=== PATIENT | male | born 1970 | race Caucasian/White ===

== ENCOUNTER 2022-09-30 10:34 | Outpatient (OUT) | payer MEDICARE, MEDICAID, SELFPAY ==
--- NOTE | 2022-09-30 10:46 | US_ITS ---
The [address] [address] Patient Name: PRISCILA FRASER MRN: [id number] date: 1970 Sex: M Assigned Patient Location: [facility] Current Patient Location: RAD Accession/Order Number: [id number] Exam Date: 09/30/2022 10:50 Report Date: 09/30/2022 12:42 At the request of: SHAIKH GEOFF Procedure: US renal bladder EXAM: US renal bladder HISTORY: Left Renal Cyst N28.1 COMPARISON: CT abdomen and pelvis 04/08/2022. TECHNIQUE: Real-time ultrasound imaging of the kidneys and bladder. Findings: The right and left kidneys measure 9.1 and 10.2 cm. Corticomedullary differentiation bilaterally. No renal stones or collecting system dilatation. Off the upper pole of the left kidney is a 1.2 x 1.0 x 1.3 cm anechoic lesion with posterior acoustic enhancement likely representing a cyst. There is a thin rim calcification. No perinephric fluid collections. The bladder is partially distended. Mild bladder wall thickening likely relates to lack of full distention. Prevoid volume of 99 mL with a postvoid residual of 81 mL. The bilateral ureteral jets are identified. The prostate measures 3.7 x 3.6 x 2.9 cm. IMPRESSION: 1. Left renal cyst with a thin rim calcification has not growing significantly when compared to the prior CT 04/08/2022. 2. Postvoid residual volume within the bladder. Electronically authenticated by: VALERIA CARTER Date: 09/30/2022 12:42
== END 2022-09-30 10:35 ==
LOC: RAD 10:38
PROVIDERS: PCP Internal Medicine; Visit Provider Internal Medicine
DX: N28.1 Cyst of kidney, acquired (principal)
CPT/HCPCS: 76770

== ENCOUNTER 2024-12-26 14:03 | Emergency (ER) | payer MEDICARE, MEDICAID, SELFPAY ==
--- OUTSIDE RECORDS SUMMARY | 2024-12-13 13:00 | XMS_ITS | Encounter Summary ---
Author Organization [facility] Address [address] [place] [address] Care Team Providers Care Guardian Ad Litem Name Role Phone Rodrigue Hernandez MD Primary Care Provider Janet Lopez CLAIMS INVESTIGATOR Unavailable [phone] Encounter Details Date Type Department Care Team (Late st Contact Info) Description 12/13/2024 1:00 PM EDT Office Visit [facility] [address] [place] [address] Tasha Rodríguez NP [address] [place] [address] Scleroderma (HCC) (Primary Dx) Social History Tobacco Use Types Packs/Day Years Used Date Smoking Tobacco: Never Passive Smoke Exposure: Never Smokeless Tobacco: Never Alcohol Use Standard Drinks/Week Comments Never 0 (1 standard drink = 0.6 oz pur e alcohol) PHQ-2 Answer Date Recorded Patient Health Questionnaire-2 Score 2 09/14/2024 Sex and Gender Information Value Date Recorded Sex Assigned at Not on file Legal Sex Male 11:47 PM EDT Gender Identity Not on file Sexual Orientation Not on file documented as of this encounter Last Filed Vital Signs Vital Sign Reading Time Taken Comments Blood Pressure 118/80 12/13/2024 1:04 PM EDT Pulse 98 12/13/2024 1:04 PM EDT Temperature 36.4 C (97.5 F) 12/13/2024 1:04 PM EDT Respiratory Rate 18 12/13/2024 1:04 PM EDT Oxygen Saturation 96% 12/13/2024 1:04 PM EDT Inhaled Oxygen Concentration - - Weight 62.5 kg (137 lb 12.8 oz) 12/13/2024 1:04 PM EDT Height - - Body Mass Index 22.24 09/15/2023 2:21 PM EDT documented in this encounter Patient Instructions * Patient Instructions* Tasha Rodríguez NP - 12/13/2024 1:00 PM EDT Come 01/03/25 at 11:45 documented in this encounter Progress Notes * Tasha Rodríguez NP - 12/13/2024 1:00 PM EDT Images from the original note were not included. Chris Tiwari is a 54 y.o. male presents with chief complaint of No chief complaint on file. HPI: Here for a recheck,he has hx of scleroderma, unable to see any providers as he has absolutely no rides, and has attempted to call numerous places only to be told no available services. He is willing to have things completed, however is truly unable to get transportation No other c/o today SUBJECTIVE: MEDICATIONS: No current outpatient medications ALLERGIES: No Known Allergies REVIEW OF SYMPTOMS: Review of Systems Constitutional: Negative for activity change, appetite change and unexpected weight change. HENT: Negative for ear pain, nosebleeds, sneezing, trouble swallowing and voice change. Eyes: Negative for pain, discharge and visual disturbance. Respiratory: Negative for apnea, chest tightness and wheezing. Cardiovascular: Negative for leg swelling. Gastrointestinal: Negative for abdominal distention, blood in stool, constipation and diarrhea. Genitourinary: Negative for decreased urine volume, difficulty urinating, dysuria and hematuria. Musculoskeletal: Positive for arthralgias and myalgias. Skin: Negative for color change. Neurological: Negative for dizziness, tremors and seizures. Psychiatric/Behavioral: Negative for agitation, decreased concentration, hallucinations, self-injury and suicidal ideas. The patient is not nervous/anxious. Hematological: Negative for adenopathy. Does not bruise/bleed easily. Endocrine: Negative for cold intolerance, heat intolerance, polydipsia and polyuria. Allergic/Immunologic: Negative for environmental allergies and food allergies. PAST MEDICAL HISTORY Past Medical History: Diagnosis Date History of thrombocytopenia Renal cyst, acquired, left Scleroderma (HCC) Splenomegaly Systemic lupus erythematosus (HCC) Past Surgical History: Procedure Laterality Date SPLENECTOMY, PARTIAL [address] [facility] family history includes No Known Problems in his father and mother. OBJECTIVE: Visit Vitals BP 118/80 (BP Location: Left arm, Patient Position: Sitting, BP Cuff Size: Adult long) Pulse 98 Temp 97.5 ??F (Temporal) Resp 18 Wt 137 lb 12.8 oz SpO2 96% BMI 22.24 kg/m?? Smoking Status Never BSA 1.71 m?? Physical Exam Vitals and nursing note reviewed. Constitutional: Appearance: Normal appearance. HENT: Head: Normocephalic. Right Ear: External ear normal. Left Ear: External ear normal. Nose: Nose normal. Mouth/Throat: Mouth: Mucous membranes are moist. Pharynx: Oropharynx is clear. Eyes: Extraocular Movements: Extraocular movements intact. Conjunctiva/sclera: Conjunctivae normal. Cardiovascular: Rate and Rhythm: Normal rate and regular rhythm. Pulses: Normal pulses. Heart sounds: Normal heart sounds. No murmur heard. Pulmonary: Effort: Pulmonary effort is normal. Breath sounds: Normal breath sounds. No wheezing or rhonchi. Abdominal: General: Bowel sounds are normal. Palpations: Abdomen is soft. Musculoskeletal: Cervical back: Neck supple. Right lower leg: No edema. Left lower leg: No edema. Comments: Atrophy bilat arms Skin: General: Skin is warm and dry. Capillary Refill: Capillary refill takes 2 to 3 seconds. Neurological: General: No focal deficit present. Mental Status: He is alert. Psychiatric: Mood and Affect: Mood normal. Behavior: Behavior normal. Thought Content: Thought content normal. Judgment: Judgment normal. ASSESSMENT AND PLAN: No follow-ups on file. Problem List Items Addressed This Visit Scleroderma (HCC) - Primary Does not see any lead installer Pt with difficulty with transportation, does not have car, walks places for PCP appt He has attempted to contact insurance to see if they can provide rides At this point I am unable to think of an option I will have him return to the office on 01/03/25 11:45 fasting * Tasha Rodríguez NP - 12/13/2024 6:34 AM EDTAssociated Problem(s): Scleroderma (HCC) Does not see any lead installer Pt with difficulty with transportation, does not have car, walks places for PCP appt He has attempted to contact insurance to see if they can provide rides At this point I am unable to think of an option I will have him return to the office on 01/03/25 11:45 fasting documented in this encounter Plan of Treatment Not on file documented as of this encounter Visit Diagnoses Diagnosis Scleroderma (HCC)- Primary Systemic sclerosis documented in this encounter Additional Health Concerns Assessment Noted Time PHQ-9 Depression Total Score: 2 09/15/19 1:15 PM EDT documented as of this encounter Care Teams Guardian Ad Litem Relationship Specialty Start Date End Date Rodrigue Hernandez MD PCP - General Family Medicine 01/14/24 Janet Lopez NP Nurse Practitioner Family Medicine 01/14/24 documented as of this encounter
[2024-12-26] VITALS (13 sets, daily range): BP systolic 111–132; BP diastolic 70–81; PULSE 68–103; TEMP 36.6; O2SAT 96–100; BMI 21.8
--- OUTSIDE RECORDS SUMMARY | 2024-12-26 14:15 | XMS_ITS | Clinical Summary ---
Author Organization [facility] Address [address] [place] [address] Care Team Providers Care Certification Engineer Name Role Phone Rodrigue Hernandez MD Primary Care Provider Janet Lopez HOT PACKER Unavailable [phone] Allergies No known active allergies Medications No known medications Active Problems Problem Noted Date Diagnosed Date Encounter for subsequent to ual wellness visit (AWV) in Medicare patient 09/14/2024 Assessment & Plan (09/14/2024 6:51 AM EDT): Reviewed Ht/Wt/BMI Recommend eye exam yearly Recommend dental exams twice a year Balance work/leisure activities Exercises is recommended most days of the week (appropriate as chronic conditions allow) Follow up yearly and prn Dystrophic nail 09/14/2024 Scleroderma 09/15/2023 Assessment & Plan (12/13/2024 1:31 PM EDT): Does not see any warehouse shipper Pt with difficulty with transportation, does not have car, walks places for PCP appt He has attempted to contact insurance to see if they can provide rides At this point I am unable to think of an option I will have him return to the office on 01/03/25 11:45 fasting Assessment & Plan (09/14/2024 5:36 PM EDT): Does not see any warehouse shipper Pt with difficulty with transportation, does not have car, walks places for PCP appt He has attempted to contact insurance to see if they can provide rides He is told they do not?? Renal cyst, left 09/15/2023 Assessment & Plan (09/14/2024 6:52 AM EDT): Hx of this, has been recommended in the past to get a fu US, to date no results in the chart Assessment & Plan (09/15/2023 2:54 PM EDT): Left renal cyst - CT abd 04/10, likely hemorrhagic cyst. US ordered last appt to ensure stability. Patient did not get it. Reiterated/reordered US Wellness examination 09/15/2023 Assessment & Plan (09/15/2023 2:59 PM EDT): Patient here for Annual Wellness Exam. Reviewed medical, surgical and social hx. Reviewed medication list. Health related questions and concerns addressed and answered. Patient provided appropriate education on chronic medical conditions and prescription medications. Upto date on colon cancer screening - negative Cologuard. 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 07/09 - reduced DLCO, worsened from PFTs in 2019 Asymptomatic. No evidence of ILD -HRCT 07/2021 Echo 2021- Normal LVEF, no Pulm HTN. He would benefit from periodic PFTs to assess his lung function but he has not done that consistently as he has remained largely asymptomatic and does not feel the need for periodic testing. Reiterated that he should follow up with Pulm atleast on an annual basis. Seen by Rheumatology - not on DMARDS. Denies CP, SOB, GERD/Joint pain. Monitor as clinically indicated. Encounters Date Type Department Care Team Description 12/13/2024 1:00 PM EDT Office Visit [facility] [address] [place] [address] Tasha Rodríguez NP Scleroderma (HCC) (Primary Dx) 12/13/2024 Bamboo flowsheet [facility] [address] [place] [place] [id number] Tasha Rodríguez NP from Last 3 Months Immunizations Immunization Administration Dates Next Due DTaP, Unspecified 11/18/1972, 2,1971,1971 Dimitris SARS-CoV-2 03/06/2021 Pfizer Delong Cap SARS-CoV-2 Vaccination 09/02/2021 Polio, Unspecified 08/06/1972,1971, 972 Family History Medical History Relation Name Comments No Known Problems Father No Known Problems Mother Relation Name Status Comments Father Mother Social History Tobacco Use Types Packs/Day Years Used Date Smoking Tobacco: Never Passive Smoke Exposure: Never Smokeless Tobacco: Never Tobacco Cessation:Counseling Given: No Alcohol Use Standard Drinks/Week Comments Never 0 (1 standard drink = 0.6 oz pur e alcohol) PHQ-2 Answer Date Recorded Patient Health Questionnaire-2 Score 2 09/14/2024 Sex and Gender Information Value Date Recorded Sex Assigned at Not on file Legal Sex Male 11:47 PM EDT Gender Identity Not on file Sexual Orientation Not on file Last Filed Vital Signs Vital Sign Reading Time Taken Comments Blood Pressure 118/80 12/13/2024 1:04 PM EDT Pulse 98 12/13/2024 1:04 PM EDT Temperature 36.4 C (97.5 F) 12/13/2024 1:04 PM EDT Respiratory Rate 18 12/13/2024 1:04 PM EDT Oxygen Saturation 96% 12/13/2024 1:04 PM EDT Inhaled Oxygen Concentration - - Weight 62.5 kg (137 lb 12.8 oz) 12/13/2024 1:04 PM EDT Height 167.6 cm (5' 6 ) 09/15/2023 2:21 PM EDT Body Mass Index 22.24 09/15/2023 2:21 PM EDT Plan of Treatment Health Maintenance Due Date Last Done Comments CT Colonography 1971 Colonoscopy 1971 FIT 1971 FOBT 1970 Sigmoidoscopy 1971 Influenza Vaccine (#1) 2024 Colorectal Cancer Screening 04/20/2025 FIT-DNA 04/20/2025 04/20/2022 Medicare Annual Wellness (AWV) 09/14/2025 09/14/2024 , 09/15/2023 Insurance MEDICARE MEDICAID [place] Care Teams Certification Engineer Relationship Specialty Start Date End Date Rodrigue Hernandez MD PCP - General Family Medicine 01/14/24 Janet Lopez NP Nurse Practitioner Family Medicine 01/14/24
--- OUTSIDE RECORDS SUMMARY | 2024-12-26 14:15 | XMS_ITS | Encounter Summary ---
Author Organization [facility] Address [address] [place] [address] Care Team Providers Care Ui Ux Developer Name Role Phone Rodrigue Hernandez MD Primary Care Provider [phone] Janet Lopez CHUCK SPLITTER Unavailable [phone] Encounter Details Date Type Department Care Team (Late st Contact Info) Description 12/13/2024 Bamboo flowsheet [facility] [address] [place] [address] Tasha Rodríguez NP [address] [place] [address] Social History Tobacco Use Types Packs/Day Years [...] on file documented as of this encounter Plan of Treatment Not on file documented as of this encounter Visit Diagnoses Not on filedocumented in this encounter Additional Health Concerns Assessment Noted Time PHQ-9 Depression Total Score: 2 09/15/19 25 1:15 PM EDT documented as of this encounter Care Teams Ui Ux Developer Relationship Specialty Start Date End Date Rodrigue Hernandez MD PCP - General Family Medicine 01/14/24 Janet Lopez NP Nurse Practitioner Family Medicine 01/14/24 documented as of this encounter
--- OUTSIDE RECORDS SUMMARY | 2024-12-26 14:15 | XMS_ITS | Clinical Summary ---
Author Organization [employer] [facility] Address [id number] [address] [place] [address] Care Team Providers Care Talent Partner Name Role Phone Shaikh KELIN May Primary Care Provider [phone] Allergies No known active allergies Medications No known medications Active Problems Problem Noted Date Diagnosed Date H/O splenectomy 07/02/2022 Social History Tobacco Use Types Packs/Day Years Used Date Smoking Tobacco: Never Smokeless Tobacco: Never Tobacco Cessation:Counseling Given: Not Answered Childcare Answer Date Recorded Childcare Unknown 09/29/2018 Employment Answer Date Recorded Employment Unknown 09/29/2018 Hunger Screening Answer Date Recorded Within the past 12 months we worried whether our food would run out before we got money to buy more. Never True 07/30/2022 Within the past 12 months th e food we bought just didn't last and we didn't have money to get more. Never True 07/30/2022 Purpose - Life Answer Date Recorded Purpose and direction in life Unknown Sex and Gender Information Value Date Recorded Sex Assigned at Not on file Legal Sex Male 11:46 AM EDT Gender Identity Not on file Sexual Orientation Not on file Last Filed Vital Signs Vital Sign Reading Time Taken Comments Blood Pressure 105/83 07/30/2022 12:39 PM EDT Pulse 97 07/30/2022 12:39 PM EDT Temperature 37 C (98.6 F) 07/30/2022 12:39 PM EDT Respiratory Rate 16 07/30/2022 12:39 PM EDT Oxygen Saturation - - Inhaled Oxygen Concentration - - Weight 62.1 kg (137 lb) 07/30/2022 12:39 PM EDT Height 167.6 cm (5' 6 ) 07/02/2022 1:58 PM EDT Body Mass Index 22.11 07/02/2022 1:58 PM EDT Plan of Treatment Health Maintenance Due Date Last Done Comments Depression Screening 1983 Tobacco Screening 1983 DTaP,Tdap and Td Vaccines (1 - Tdap) 1990 Zoster (Shingles) Vaccine (1 of 2) 2021 Adult BMI Screening 07/31/2023 07/30/2022 Influenza Vaccine 12/19/2024 Medical Devices Not on file Insurance MEDICARE MEDICAID [place] Care Teams Talent Partner Relationship Specialty Start Date End Date Shaikh May MD PCP - General Internal Medicine 06/26/22
--- OUTSIDE RECORDS SUMMARY | 2024-12-26 14:15 | XMS_ITS | Clinical Summary ---
Author Organization [facility] Address [address] [place] [address] Care Team Providers Care Rail Specialist Name Role Phone Unavailable Primary Care Provider Unavailabl e Social History Tobacco Use Types Packs/Day Years Used Date Smoking Tobacco: Never Assessed Sex and Gender Information Value Date Recorded Sex Assigned at Not on file Legal Sex Male 7:19 AM EST Gender Identity Not on file Sexual Orientation Not on file Plan of Treatment Health Maintenance Due Date Last Done Comments HEPATITIS C VIRUS SCREENING 1971 TETANUS 1971 HIV SCREENING DISCUSSION 1986 HEP B VACCINE (1 of 3 - 19+ 3-dose series) 1990 TDAP (ADULT) 1990 LIPID SCREENING 2011 COLORECTAL CANCER SCREENING DISCUSSION 2016 PNEUMOCOCCAL VACCINE SERIES (1 of 1 - PCV) 2021 ZOSTER (SHINGLES) VACCINE (1 of 2) 2021 COVID-19 VACCINE (1 - season) 2023 INFLUENZA VACCINE (#1) 2024
--- OUTSIDE RECORDS SUMMARY | 2024-12-26 14:15 | XMS_ITS | Clinical Summary ---
Author Organization [facility] Address [address] [place] [address] Care Team Providers Care Box Office Attendant Name Role Phone Unavailable Primary Care Provider Unavailabl e Social History Tobacco Use Types Packs/Day Years Used Date Smoking Tobacco: Never Assessed [place] Safety & Environment Answer Date Rec orded Fear of Current or Ex-Partner Not on file Emotionally Abused Not on file 06/11/2023 Physically Abused Not on file 06/11/2023 Sexually Abused Not on file 06/11/2023 Physically or Sexually Abused Not on file Sex and Gender Information Value Date Recorded Sex Assigned at Not on file Legal Sex Male 9:11 PM EDT Gender Identity Not on file Sexual Orientation Not on file Plan of Treatment Not on file
--- NOTE | 2024-12-26 14:34 | ECG_ITS ---
The [facility] Test Date: 2024-12-26 Pat Name: PRISCILA FRASER Department: Room: - Gender: Male Field Operations Technician: : 1970 Requested By: [id number] Order Number: [id number] Reading MD: KAYLENE SAMUEL Measurements Intervals Rosalia Rate: 69 P: 47 AL: 138 QRS: 63 QRSD: 100 T: 52 QT: 396 QTc: 416 Interpretive Statements 1100 Sinus rhythm 2440 Incomplete right bundle branch block 9130 borderline ECG Compared to ECG 12/25/2017 13:33:46 Incomplete right bundle-branch block now present Electronically Signed On 12-26-2024 19:12:23 EDT by KAYLENE SAMUEL
--- NOTE | 2024-12-26 14:47 | CT_ITS ---
The [address] [address] Patient Name: PRISCILA FRASER MRN: [id number] date: 1970 Sex: M Assigned Patient Location: ER Current Patient Location: ER Accession/Order Number: [id number] Exam Date: 12/26/2024 15:17 Report Date: 12/26/2024 15:38 At the request of: NABILA FLOYD Procedure: CT head/brain wo con CT BRAIN WITHOUT CONTRAST: CLINICAL HISTORY: Persistent dizziness and ELLISON COMPARISON: None TECHNIQUE: Contiguous axial unenhanced images were obtained through the brain. This CT exam was performed using one or more following dose reduction techniques: Automated exposure control, adjustment of the mA and/or kV according to patient size, or use of iterative reconstruction technique. FINDINGS: There is no evidence of midline shift, intra or extra-axial fluid collection, hemorrhage or CT evidence of stroke. Posterior fossa appears unremarkable. Visualized intraorbital contents demonstrate no acute findings. Visualized paranasal sinuses are clear. The surrounding soft tissues are normal. CT/CT head/brain wo con IMPRESSION: NO ACUTE INTRACRANIAL ABNORMALITY. Impression dictated by: Priscila Thompson Jr., D.O. 12/26/2024 3:38 PM Dictation Location: [place] [address] Electronically authenticated by: [id number] Date: 12/26/2024 15:38
--- NOTE | 2024-12-26 14:51 | ED_ITS ---
HPI HPI - General Adult General Chief complaint: Dizziness Stated complaint: DIZZINESS NAUSEA Time Seen by Provider: 12/26/24 14:32 Source: patient Mode of arrival: walk-in Limitations: no limitations History of Present Illness HPI narrative: Patient is a 54-year-old male with a past medical history of scleroderma and surgical history of splenectomy many years ago that presents with 3 days of dizziness, nausea, and headache. He denies any chest pain, palpitations, shortness of breath, or syncope. He denies any limb weakness, paresthesias, dysarthria, diplopia. He denies any fever, cough, congestion, vomiting, or diarrhea. His dizziness does change with position, he is more dizzy when sitting up. He does not take any medications and has not had any trauma. Related Data Previous Rx's ?Medication ?Instructions ?Recorded meclizine 25 mg chewable tablet 25 mg PO TID PRN dizzi ness #20 tabs 12/26/24 (Antivert) Allergies Allergy/AdvReac Type Severity Reaction Status Date / Time No Known Drug Allergies Allergy Verified 12/26/24 14:14 Opioid HPI Opioid Management Most Recent Opioid Data: Last Pain Scale 2 12/26/24, 14:14 Review of Systems ROS Status of ROS 10 or more systems reviewed and unremark able except as noted in history and below PFSH PFSH Social History Little interest or pleasure in doing things: not at all Feeling down, depressed, or hopeless: not at all Exam Narrative Exam Narrative: General: No distress, age-appropriate Skin: Warm, dry, no pallor. No rash. Head: Normocephalic, atraumatic. Neck: Supple, non-tender. Eye: Pupils are equal, round and EOMI. No scleral icterus. Ears, Nose, Mouth, and Throat: No nasal mucosal hypertrophy. Oral mucosa is moist, no posterior oropharynx erythema, uvula is mid-line Cardiovascular: Regular Rate and Rhythm without murmur, gallop or rub. Respiratory: No accessory muscle use or respiratory distress. Lungs are clear to auscultation, no wheezing, rales or rhonchi Chest Wall: no tenderness Back: No midline thoracic or lumbar vertebral tenderness. Musculoskeletal: Full ROM of all extremities, no calf or popliteal tenderness GI: Abdomen is soft, mildly distended, non tender to palpation. No masses appreciated. No rebound, guarding, or rigidity noted. Extensive healed surgical scar LUQ. Neurological: A&O x4. No cranial nerve dysfunction observed. No truncal ataxia. Moves all extremities. Sensation intact. Psychiatric: Cooperative and interactive. Normal mood and affect. Constitutional Vital Signs, click to edit/add: Last Vital Signs Temp 98 F 12/26/24 14:14 Pulse 68 12/26/24 16:00 Resp 17 12/26/24 16:00 BP 113/70 12/26/24 16:00 Pulse Ox 98 12/26/24 16:00 O2 Del Method Room Air 12/26/24 14:14 Course Vital Signs Vital signs: Vital Signs Temperature 98 F 12/26/24 14:14 Pulse Rate 76 12/26/24 14:14 Respiratory Rate 20 12/26/24 14:14 Blood Pressure 111/78 12/26/24 14:14 Pulse Oximetry 100 12/26/24 14:14 Oxygen Delivery Method Room Air 12/26/24 14:14 Temperature 98 F 12/26/24 14:14 Pulse Rate 68 12/26/24 16:00 Respiratory Rate 17 12/26/24 16:00 Blood Pressure 113/70 12/26/24 16:00 Pulse Oximetry 98 12/26/24 16:00 Oxygen Delivery Method Room Air 12/26/24 14:14 Medical Decision Making MDM Narrative Medical decision making narrative: 54-year-old male presented to the emergency department with complaints of 3 days of persistent dizziness and some nausea. He denies any vomiting, diarrhea, SOB, chest pain, palpitations, head trauma, focal neurological deficits, or recent illness. 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 He denies any heart or vascular history or any family history of this. On arrival patient laying on cart. Vital stable. Nontoxic-appearing, nondiaphoretic. Initial evaluation included and non contrast headt CT that was negative for acute intracranial pathology (e.g. hemorrhage, mass effect, or infarct). A troponin was obtained and was negative effectively ruling out coronary syndrome. ECG revelaed NSR with an incomplete RBB, which is a nonspecific finding or associated with acute ischemia. Labs: CBC: wnl,no evidence of infection or acute anemia. BNP: wnl, lowering concern for acute decompensated heart failure. Given the absence of focal neurological defects, negative head CT, and stable cardiovascular findings, a central cause of Vertigo (e.g. stroke, mass) is less likely. The patients symptoms are more consistent with peripheral vertigo (e.g vestibular neuritis or BPPV). No signs suggest Meniere's disease or Labyrinthitis as this time. Plan: Antivert 25mg given in ED. Patient with mild improvement in symptoms. Patient will be discharged with a prescription for Antivert with follow up with his PCP. Patient educated to return if dizziness worsens, he develops neurological deficits, chest pain, or syncope. Differential Diagnosis Differential Diagnosis: ACS, BPPV, TIA, Stroke, Arrhthmias Lab Data Labs: Lab Results 12/26/24 12/26/24 Range/Units 14:45 14:52 WBC 9.1 (4.0-11.0) 10^3/uL RBC 4.73 (4.70-6.10) 10^6/uL Hgb 14.3 (14.0-18.0) g/dL Hct 44.4 (42.0-54.0) % MCV 93.9 (80.0-94.0) fL MCH 30.2 (25.9-34.0) pg MCHC 32.2 (29.9-35.2) g/dL RDW 13.5 (11.0-15.0) % Plt Count 437 (150-450) 10^3/uL MPV 9.5 (9.5-13.5) fL Neut % (Auto) 61.4 (43.0-75.0) % Lymph % (Auto) 21.6 (20.5-60.0) % Nelson % (Auto) 12.9 H (1.7-12.0) % Eos % (Auto) 2.4 (0.9-7.0) % Baso % (Auto) 1.5 (0.2-2.0) % Neut # (Auto) 5.6 (1.4-6.5) 10^3/uL Lymph # (Auto) 2.0 (1.2-3.8) 10^3/uL Nelson # (Auto) 1.2 H (0.3-0.8) 10^3/uL Eos # (Auto) 0.2 (0.0-0.7) 10^3/uL Baso # (Auto) 0.1 (0.0-0.1) 10^3/uL Abs Immat Gran (auto) 0.02 (0.00-0.03) 10^3/uL Imm/Tot Granulo (auto) 0.2 (0.0-0.5) % Sodium 142 (136-145) mmol/L Potassium 3.7 (3.5-5.1) mmol/L Chloride 105 (98-107) mmol/L Carbon Dioxide 30.1 (21.0-32.0) mmol/L Anion Gap 10.6 BUN 14.0 (7.0-18.0) mg/dL Creatinine 0.87 (0.70-1.30) mg/dL Est GFR ( Amer) >60 (>=60 mL/min/1.73m^2) Est GFR (Non-Af Amer) >60 (>=60 mL/min/1.73m^2) BUN/Creatinine Ratio 16.1 Glucose 87 (74-106) mg/dL Calcium 8.7 (8.5-10.1) mg/dL Troponin I High Sens <4.0 L (4.0-76.1) pg/mL Urine Color Yellow (YELLOW) Urine Clarity Clear (CLEAR) Urine pH 6.0 (5.0-9.0) Ur Specific [place] 1.025 (1.005-1.025) Urine Protein Negative (NEG/TRACE) mg/dL Urine Glucose (UA) Negative (NEGATIVE) mg/dL Urine Ketones Negative (NEGATIVE) mg/dL Urine Occult Blood Negative (NEGATIVE) Urine Nitrite Negative (NEGATIVE) Urine Bilirubin Negative (NEGATIVE) Urine Urobilinogen 1.0 (0.2-1.0) EU/dL Ur Leukocyte Esterase Negative (NEGATIVE) Discharge Plan Discharge Chief Complaint: Dizziness Clinical Impression: Dizziness Patient Disposition: Home, Self-Care Time of Disposition Decision: 15:57 Condition: Good Mode of Transportation: Private Vehicle Prescriptions / Home Meds: New meclizine [Antivert] 25 mg tablet,chewable 25 mg PO TID PRN (Reason: dizziness) Qty: 20 0RF Print Language: Ukrainian Instructions: Dizziness (ED) Additional Instructions: Return to the Emergency Department if symptoms worsen or you experience new symptoms. Referrals: Aichholz,Tasha J, [facility] [Primary Care Provider, Family Practice] - 1 week Discharge Date/Time: 12/26/24 16:13
[2024-12-26 15:04] LABS: Glucose Urine UA NEGATIVE (NEGATIVE)
[2024-12-26 15:04] LABS: Hematocrit 44.4 % (42.0-54.0); Hemoglobin 14.3 g/dL (14.0-18.0); Immature Granulocytes Abs Auto 0.02 10^3/uL (0.00-0.03); Immature Granulocytes Pct Auto 0.2 % (0.0-0.5); Lymphocytes Absolute Auto 2.0 10^3/uL (1.2-3.8); Mean Corpuscular HGB Conc 32.2 g/dL (29.9-35.2); Mean Corpuscular Hemoglobin 30.2 pg (25.9-34.0); Mean Corpuscular Volume 93.9 fL (80.0-94.0); Platelet Count 437 10^3/uL (150-450); Red Blood Count 4.73 10^6/uL (4.70-6.10); White Blood Count 9.1 10^3/uL (4.0-11.0)
[2024-12-26] MEDS: MECLIZINE HCL 12.5 MG TABLET 25 MG PO (15:14)
[2024-12-26 15:17] LABS: Anion Gap 10.6; Blood Urea Nitrogen 14.0 mg/dL (7.0-18.0); Calcium 8.7 mg/dL (8.5-10.1); Carbon Dioxide 30.1 mmol/L (21.0-32.0); Chloride 105 mmol/L (98-107); Estimated GFR (African America >60 (>=60 mL/min/1.73m^2); Estimated GFR (Non-African Ame >60 (>=60 mL/min/1.73m^2); Glucose 87 mg/dL (74-106); Potassium 3.7 mmol/L (3.5-5.1); Sodium 142 mmol/L (136-145)
== END 2024-12-26 16:13 | disposition home or self-care (01) ==
PROVIDERS: Physician Assistant; Emergency Provider Emergency Medicine; PCP Nurse Practitioner
DX: R42 Dizziness and giddiness (principal); M34.9 Systemic sclerosis, unspecified; Z90.81 Acquired absence of spleen
CPT/HCPCS: 36415; 70450; 80048; 81003; 84484; 85025; 85378; 93005; 99285